=== PATIENT | male | born 1990 | race Caucasian/White ===

== ENCOUNTER 2019-10-10 12:45 | Inpatient (IN) ==
[2019-10-10 13:34] LABS: Basophils % 0.5 %; Eosinophils # 0.2 K/mcL (0.0-0.6); Eosinophils % 2.8 %; Hematocrit 45.8 % (37.5-50.1); Hemoglobin 15.2 g/dL (12.9-16.9); Immature Granulocytes % 0.5 % (0-4); Lymphocytes # 2.6 K/mcL (0.6-4.6); Lymphocytes % 30.4 %; Mean Corpuscular HGB Conc 33.2 g/dL (31.6-35.5); Mean Corpuscular Hemoglobin 30.5 pg (28.0-33.3); Mean Corpuscular Volume 91.8 fL (83.0-100.0); Mean Platelet Volume 10.8 fL (9.4-12.4); Monocytes # 0.7 K/mcL (0.0-1.3); Monocytes % 8.5 %; Neutrophils # 4.9 K/mcL (1.6-8.9); Platelet Count 222 K/mcL (140-400); Red Blood Count 4.99 M/mcL (4.19-5.50); Red Cell Distribution Width 13.2 % (11.5-14.5); Segmented Neutrophils % 57.3 %; White Blood Count 8.6 K/mcL (4.3-11.1)
[2019-10-10 13:37] LABS: Bilirubin,Urine Negative (Negative); Blood,Urine Negative (Negative); Clarity,Urine Clear (Clear); Color,Urine Light-Yellow (Yellow); Glucose,Urine (UA) Normal (Normal); Ketones,Urine Negative (Negative); Leukocyte Esterase,Urine Negative (Negative); Nitrite,Urine Negative (Negative); PH,Urine 6.5 pH Units (5.0-8.0); Protein,Urine Negative (Neg-Trace); Specific Gravity,Urine 1.009 (1.010-1.025); Urobilinogen,Urine Normal (Normal)
[2019-10-10 13:54] LABS: Acetaminophen < 10 mcg/mL (10-20); BUN/Creatinine Ratio 10 (6-26); Blood Urea Nitrogen 10 mg/dL (6-20); Calcium 9.4 mg/dL (8.6-10.3); Carbon Dioxide 25 mEq/L (23-29); Chloride 104 mEq/L (98-107); Chol/HDL Ratio 3.4 (0-4.9); Cholesterol 134 mg/dL (< 200); Ethanol < 10 mg/dL (Less than 10); Glucose 110 mg/dL (70-105); HDL Cholesterol 40 mg/dL (40-59); LDL Cholesterol,Calculated 78 mg/dL (< 100); Osmolality,Calculated 282 (280-300); Potassium 4.3 mEq/L (3.5-5.1); Salicylate < 2.5 mg/dL (15.0-30.0); Sodium 136 mEq/L (136-145); Triglycerides 79 mg/dL (< 150); eGFR For African Americans > 60 (> 60); eGFR For Non-African Americans > 60 (> 60)
[2019-10-10 13:55] LABS: Amphetamine Screen,Urine Negative ng/mL (Cutoff=1000); Barbiturate Screen,Urine Negative ng/mL (Cutoff=200); Benzodiazepines Screen,Urine Negative ng/mL (Cutoff=200); Cannabinoid Screen,Urine Negative ng/mL (Cutoff = 50); Cocaine Screen,Urine Negative ng/mL (Cutoff= 300); Opiate Screen,Urine Negative ng/mL (Cutoff=300); Phencyclidine Screen,Urine Negative ng/mL (Cutoff=25)
[2019-10-10 15:23] LABS: Estimated Average Glucose 97 mg/dl
[2019-10-10] MEDS ORDERED: *HR* LORazepam 1 MG TABLET PO PRN (15:32)
[2019-10-10] MEDS ORDERED: hydrOXYzine pamoate 25 MG CAPSULE PO PRN ×2 (15:32→16:27)
[2019-10-10] MEDS ORDERED: MOM Conc 10 ML UD.LIQ PO PRN (15:32)
[2019-10-10] MEDS ORDERED: haloperidoL 5 MG TABLET PO PRN (15:32)
[2019-10-10] MEDS ORDERED: Acetaminophen 325 MG TABLET PO PRN (15:32)
[2019-10-10] MEDS ORDERED: Mag Hydrox/Al Hydrox/Simeth 30 ML UDC PO PRN (15:32)
[2019-10-10] MEDS ORDERED: Haloperidol Lactate 5 MG/ML VIAL IM PRN (15:32)
[2019-10-10] MEDS ORDERED: traZODone 50 MG TABLET PO PRN (15:32)
[2019-10-10] MEDS ORDERED: *HR* LORazepam 2 MG/ML VIAL IM PRN (15:32)
[2019-10-10] MEDS: Ascorbic Acid 500 MG TABLET PO SCH (20:25)
[2019-10-10] MEDS ORDERED: risperiDONE 0.25 MG TABLET PO SCH (21:00)
[2019-10-10] MEDS ORDERED: traZODone 50 MG TABLET PO SCH (21:00)
[2019-10-10] MEDS: BuPROPion SR (12 HR) 150 MG TABLET PO SCH (21:13)
[2019-10-11] MEDS: BuPROPion SR (12 HR) 150 MG TABLET PO SCH (08:48)
[2019-10-11] MEDS: Ascorbic Acid 500 MG TABLET PO SCH (08:48)
[2019-10-11] MEDS ORDERED: ARIPiprazole 10 MG TABLET PO SCH (09:00)
[2019-10-11 09:19] VITALS: BP 119/79
[2019-10-11] MEDS ORDERED: ABILIFY MAINTENA 400 MG IM SCH (12:30)
== END 2019-10-11 16:10 | disposition home or self-care (01) | DRG 753 ==
LOC: EMEROOARM 12:45 → 1ANU 15:30
PROVIDERS: ADMIT Psychiatry & Neurology Psychiatry; ATTEND Psychiatry & Neurology Psychiatry